=== PATIENT | female | born 1940 | race Caucasian/White ===

== ENCOUNTER → 2018-02-25 | Outpatient (CLI) | payer MEDICARE, OTHER ==
--- NOTE | 2018-02-26 10:03 | RAD ---
EXAM: Knee,Left Complete CLINICAL HISTORY: PAIN COMPARISON STUDY: None TECHNICAL: Standing AP and lateral images of the left knee FINDINGS: There is complete joint space loss of the lateral compartment with contact of the cortices and remodeling of the joint line. Large peripheral osteophytes are present. There are moderate to severe degenerative changes of the medial compartment with joint space loss and periarticular osteophytes. There are moderate to severe degenerative changes of the patellofemoral joint with large peripheral osteophytes. There is no fracture or dislocation. There is no evidence of a joint effusion. IMPRESSION: 1. Severe degenerative changes of the left lateral compartment. 2. Moderate to severe degenerative changes in the left medial compartment and patellofemoral joint. Electronically signed by: Michael Tompkins MD 02/26/2018 10:02 AM [facility]
--- NOTE | 2018-02-26 10:05 | RAD ---
EXAM: Knee,Right Complete CLINICAL HISTORY: PAIN IN RIGHT KNEE COMPARISON STUDY: None TECHNICAL: Standing AP, sunrise and lateral images of the right knee FINDINGS: There is severe joint space loss of the medial compartment with contact of the cortices and remodeling of the joint line. Large peripheral osteophytes are present. There are moderate degenerative changes of the lateral compartment with mild joint space loss and periarticular osteophytes. There are moderate degenerative changes of the patellofemoral joint with large peripheral osteophytes. There is no fracture or dislocation. There is no evidence of a joint effusion. IMPRESSION: 1. Severe degenerative changes of the right medial compartment. 2. Moderate degenerative changes in the right lateral compartment and patellofemoral joint Electronically signed by: Michael Tompkins MD 02/26/2018 10:04 AM [facility]
--- NOTE | 2018-02-26 10:06 | RAD ---
EXAM: Pelvis CLINICAL HISTORY: PAIN IN RIGHT HIP COMPARISON STUDY: None TECHNICAL: AP pelvis FINDINGS: Both hips have been replaced and the prosthesis are in alignment. The pelvic ring is intact. There are no degenerative changes of the sacroiliac joints. Postoperative changes of the lower lumbar spine are noted. Bilateral pelvic phleboliths are present. IMPRESSION: 1. No acute abnormality. 2. Intact bilateral hip prosthesis Electronically signed by: Michael Tompkins MD 02/26/2018 10:05 AM [facility]
== END ==
LOC: RAD 08:35
PROVIDERS: ATTEND Orthopaedic Surgery
DX: M25.561 Pain in right knee (principal); M25.551 Pain in right hip; M25.552 Pain in left hip; M17.0 Bilateral primary osteoarthritis of knee; Z96.643 Presence of artificial hip joint, bilateral

== ENCOUNTER → 2018-03-05 | Outpatient (CLI) | payer MEDICARE, OTHER ==
--- NOTE | 2018-03-05 14:59 | RAD ---
EXAM DESCRIPTION: Femur,Left CLINICAL HISTORY: 77 years Female, OSTEOARTHRITIS COMPARISON: None. FINDINGS: Total left hip arthroplasty is noted with anatomic alignment. No complicating fracture of the femur. Severe degenerative changes are seen at the left knee consistent with end-stage osteoarthrosis. Tibia and fibula appear intact. IMPRESSION: Total left hip arthroplasty. End-stage osteoarthrosis of the left knee. Electronically signed by: Willie Bright MD 03/05/2018 2:57 PM [facility]
--- NOTE | 2018-03-05 15:19 | MRI ---
EXAM DESCRIPTION: Knee,Left CLINICAL HISTORY: OSTEOARTHRITIS COMPARISON: None Available. TECHNIQUE: MRI of the left knee is performed according to our usual protocol with multiplanar multi sequence imaging. FINDINGS: Menisci Mild medial meniscal extrusion is seen measuring approximately 7 mm. Linear increased signal intensity is seen in the mid body with flattened appearance of the body of the meniscus. No extension to the articular surface to suggest a true tear. A normal lateral meniscus is not identified on the sagittal images. Small amount of meniscal tissue is seen anteriorly consistent with a flattened anterior horn. Amorphous meniscal tissue is seen posteriorly in the region of the posterior horn consistent with complex tear, possibly with displaced fragment overlapping. Findings might also suggest previous partial meniscectomy. Sagittal images show complex tear of the posterior horn of the lateral meniscus extending to the superior and inferior articular surfaces with possible involvement of the meniscal root attachment. Ligaments Thickened posterior cruciate ligament is seen with increased internal signal intensity suggesting chronic myxoid degenerative change. A normal anterior cruciate ligament is not identified consistent with chronic complete tear. Coronal images show medially bowing but intact medial collateral ligament. No disruption of the components of the lateral collateral ligamentous complex. Cartilage Axial images show multifocal grade 4 cartilage loss in the posterior patellar facet with grade 3-4 chondrosis of the anterior femoral trochlea. Prominent spurring of the patellar margins as well as the anterior femoral trochlear margins. Markedly narrowed patellofemoral joint space. Chronic complete cartilage loss of the lateral compartment is noted with subchondral cyst formation. High-grade thinning of the articular surface cartilage of the medial femoral condyle and medial tibial plateau is seen with broad areas of full-thickness cartilage denudement anteriorly. Patellofemoral extensor mechanism Sagittal images show intact quadriceps and patellar tendons. No patellar subluxation or fracture. Intact medial and lateral patellar retinacula. Osseous structures No fracture or marrow contusion. No bony destructive lesion. Subchondral degenerative cystic changes are present related to severe cartilage loss. Severe hypertrophic spurring is seen along the medial and lateral joint lines, and extending into the intercondylar notch. Large posterior patellar osteophytes are present superiorly and inferiorly. Typical proximal tibial osteophytes are present consistent with end-stage osteoarthrosis and there are prominent spurs along the posterior medial and lateral femoral condyles. Muscles Axial PD fat-sat images show mild edematous changes within the musculature of the proximal calf posteriorly. No intramuscular hematoma. Distal thigh musculature appears atrophic. Vessels Normal flow signal/flow void within the popliteal artery and vein on various sequences. Fluid Fluid is increased in the knee joint consistent with a small effusion. No posterior Ruiz's cyst. Small multiseptate cyst posterior to the lateral femoral condyle may be paraarticular ganglion 1.4 cm. IMPRESSION: Complex degenerative tear of the posterior horn lateral meniscus with thin body and anterior horn suggesting previous meniscectomy. Intact medial meniscus with medial meniscal extrusion. Tricompartmental high-grade articular surface hyaline cartilage loss as described. Chronic complete disruption of the anterior cruciate ligament. Overall findings consistent with end-stage osteoarthrosis of the left knee. Electronically signed by: Willie Bright MD 03/05/2018 3:18 PM [facility]
--- NOTE | 2018-03-06 08:04 | RAD ---
EXAM DESCRIPTION: Femur,Left CLINICAL HISTORY: 77 years Female, OSTEOARTHRITIS COMPARISON: None. FINDINGS: Total left hip arthroplasty is noted with anatomic alignment. No complicating fracture of the femur. Severe degenerative changes are seen at the left knee consistent with end-stage osteoarthrosis. Tibia and fibula appear intact. IMPRESSION: Total left hip arthroplasty. End-stage osteoarthrosis of the left knee. Electronically signed by: Willie Bright MD 03/05/2018 2:57 PM [facility]
--- NOTE | 2018-03-06 08:04 | RAD ---
EXAM DESCRIPTION: Femur,Left CLINICAL HISTORY: 77 years Female, OSTEOARTHRITIS COMPARISON: None. FINDINGS: Total left hip arthroplasty is noted with anatomic alignment. No complicating fracture of the femur. Severe degenerative changes are seen at the left knee consistent with end-stage osteoarthrosis. Tibia and fibula appear intact. IMPRESSION: Total left hip arthroplasty. End-stage osteoarthrosis of the left knee. Electronically signed by: Willie Bright MD 03/05/2018 2:57 PM [facility]
== END ==
LOC: MRI 11:00
PROVIDERS: ATTEND Orthopaedic Surgery
DX: M17.12 Unilateral primary osteoarthritis, left knee (principal); Z96.642 Presence of left artificial hip joint; S83.282A Other tear of lateral meniscus, current injury, left knee, initial encounter

== ENCOUNTER → 2018-03-18 | Outpatient (CLI) | payer MEDICARE, OTHER ==
--- NOTE | 2018-03-18 13:19 | RAD ---
EXAM DESCRIPTION: Chest,2 Views CLINICAL HISTORY: ESSENTIAL HYPERTENSION COMPARISON: None TECHNIQUE: PA/lateral FINDINGS: Pedicle screws and stabilization rods in the T-spine. Heart size is prominent without congestive failure. Density behind the heart may be hiatal hernia. Discoid atelectasis in left lung base. No pleural effusion or pneumothorax. Lungs are clear with no consolidating infiltrate. Lateral view shows intact sternum and T-spine. IMPRESSION: Large heart without congestive failure. Discoid atelectasis in left lung base with probable retrocardiac hiatal hernia. Electronically signed by: Willie Bright MD 03/18/2018 1:17 PM [facility]
== END ==
LOC: RESP 08:18
PROVIDERS: ATTEND Orthopaedic Surgery
DX: Z01.818 Encounter for other preprocedural examination (principal); I10 Essential (primary) hypertension

== ENCOUNTER → 2018-03-25 | Outpatient (CLI) | payer MEDICARE, OTHER | LOC: YCFC.O 12:21 | PROVIDERS: ATTEND Family Medicine | DX: N39.0 Urinary tract infection, site not specified (principal) ==

== ENCOUNTER → 2018-04-15 | Outpatient (CLI) | payer MEDICARE, OTHER | LOC: YCFC.O 11:04 | PROVIDERS: ATTEND Family Medicine | DX: N39.0 Urinary tract infection, site not specified (principal) ==

== ENCOUNTER 2018-05-07 05:49 | Inpatient (IN) | payer MEDICARE, OTHER ==
--- NOTE | 2018-04-29 10:10 | HP ---
CHIEF COMPLAINT: Left knee pain. HISTORY OF PRESENT ILLNESS: Ms. Mora is a 77-year-old female with a history of severe knee pain that has been getting progressively worse over several years. She has attempted conservative measures, however, has failed to gain relief. She says the left at this time is worse than the right. Because of her ongoing continued failure of conservative measures, she has requested operative intervention. After discussing the risks, benefits and alternatives to that, she has given informed consent. PAST SURGICAL HISTORY: 1. Hysterectomy. 2. Appendectomy. 3. Knee arthroscopy. 4. Lumbar and cervical fusion. 5. Bilateral hip replacements. MEDICATIONS: 1. Metoprolol. 2. Lisinopril. 3. Pravastatin. 4. Sertraline. 5. Sulindac. 6. Prilosec. 7. Duloxetine. 8. Zantac. 9. Gabapentin. 10. Tramadol. 11. Tylenol #3. 12. Multivitamin. ALLERGIES: NO KNOWN DRUG ALLERGIES. CODE STATUS: DNR. IMMUNIZATIONS: Up to date. FAMILY HISTORY: None pertinent to today's complaint. SOCIAL HISTORY: The patient does not drink, smoke or use any illicit drugs. REVIEW OF SYSTEMS: Negative except as indicated in the History of Present Illness. PHYSICAL EXAMINATION: VITAL SIGNS: Blood pressure 140/52. Pulse 76. Height 5'6". Weight 218 pounds. MENTAL STATUS: The patient is awake, alert, and is able to give a good history and participate in the physical. The patient is oriented to person, place and time. SKIN: Normal tone and turgor. HEENT: Normocephalic, atraumatic. Pupils equal, round and reactive. Mucosal membranes are moist. NECK: Normal range of motion. No thyromegaly, no lymphadenopathy. CHEST: Normal respiratory excursion. CARDIAC: Regular rate and rhythm. No murmurs, rubs or gallops. MUSCULOSKELETAL: The bilateral upper extremities show no significant pain with range of motion. She has intact sensation and strength is 5/5. Both extremities are warm and well perfused. The right lower extremity shows no significant pain with range of motion of the hip, but she does have pain with range of motion of the knee. She has intact sensation. She has no significant varus/valgus or anterior/posterior laxity. She has crepitus throughout her range of motion, but she has full extension and flexion to about 110 degrees. The left lower extremity shows no significant pain with range of motion of the hip. She is very tender to palpation along the knee. She has a large effusion on the left side and mild effusion on the right. She has full extension on the left without any varus/valgus or anterior/posterior laxity. Flexion is to about 110 degrees. IMAGING: X-rays show severe arthritis. ASSESSMENT: 1. Arthritis. PLAN: The plan at this point is for total knee arthroplasty. We have discussed the risks, benefits, and alternatives to that and the patient has given informed consent. #[id number] [facility]TDD
[2018-05-07] MEDS ORDERED: SODIUM CHL 0.9% 100ML MINI-BAG 100 ML IVPB ONE (05:53)
[2018-05-07] MEDS ORDERED: VANCOMYCIN HCL INJ 1,000 MG VIAL IVPB ONE ×3 (05:54→19:58)
[2018-05-07] MEDS ORDERED: ceFAZolin SODIUM 1 GM VIAL ONE ×2 (05:54→06:29)
[2018-05-07] MEDS ORDERED: LACTATED RINGERS 1,000 ML ONE (05:54)
[2018-05-07] MEDS ORDERED: TRANEXAMIC ACID 1,000 MG/10 ML VIAL ONE ×2 (05:54→05:58)
[2018-05-07] MEDS ORDERED: SODIUM CHLORIDE 0.9% 100ML 100 ML IVPB ONE (05:55)
[2018-05-07] MEDS ORDERED: SODIUM CHLORIDE 0.9% 250ML 250 ML ONE ×3 (05:55→19:57)
[2018-05-07] MEDS ORDERED: ACETAMINOPHEN IV 1000MG 100 ML ONE (06:31)
[2018-05-07] MEDS ORDERED: MIDAZOLAM INJ 5 MG/5 ML VIAL ONE (06:32)
[2018-05-07] MEDS ORDERED: MORPHINE SULF *EPIDURAL* 1 MG/ML VIAL ONE (06:32)
[2018-05-07] MEDS ORDERED: fentaNYL CITRATE INJ 50 MCG/ML AMP ONE (06:32)
[2018-05-07] MEDS ORDERED: HYDROmorphone HCL INJ 2 MG/ML VIAL ONE (07:16)
[2018-05-07] MEDS: VANCOMYCIN HCL INJ 1,000 MG VIAL IVPB ONE ×2 (08:02→10:14)
[2018-05-07] MEDS: ceFAZolin SODIUM 1 GM VIAL ONE ×2 (08:02→10:14)
[2018-05-07] MEDS: BUPIVACAINE LIPOSOME 13.3 MG/ML VIAL INJ ONE ×2 (08:02→10:13)
[2018-05-07] MEDS: BUPIVACAINE 0.5% 30 ML VIAL INJ ONE ×2 (08:02→10:13)
[2018-05-07] MEDS ORDERED: BUPIVACAINE LIPOSOME 13.3 MG/ML VIAL INJ ONE (08:20)
[2018-05-07] MEDS ORDERED: ELECTROLYTE-A 1,000 ML IVS ONE (10:09)
[2018-05-07] MEDS ORDERED: ALUMINUM & MAGNESIUM HYDROXIDE 30 ML UD PO PRN (10:27)
[2018-05-07] MEDS ORDERED: PROMETHAZINE HCL INJ 12.5 MG in SODIUM CHLORIDE 0.9% 50ML 50 ML IVPB PRN (10:27)
[2018-05-07] MEDS ORDERED: traMADol HCL 50 MG TAB PO PRN (10:27)
[2018-05-07] MEDS ORDERED: BISACODYL SUPPOSITORY 10 MG PR PRN (10:27)
[2018-05-07] MEDS ORDERED: NALOXONE HCL INJ 0.4 MG/ML VIAL IV PRN (10:27)
[2018-05-07] MEDS ORDERED: MAGNESIUM HYDROXIDE 30 ML UD PO PRN (10:27)
[2018-05-07] MEDS ORDERED: BENZOCAINE-MENTH LOZ (CEPACOL) 1 EA LOZ MT PRN (10:27)
[2018-05-07] MEDS ORDERED: ZOLPIDEM TARTRATE 5 MG TAB PO PRN (10:27)
[2018-05-07] MEDS ORDERED: ACETAMINOPHEN 325 MG TAB PO PRN (10:27)
[2018-05-07] MEDS ORDERED: TRANEXAMIC ACID INJ 1,000 MG in SODIUM CHLORIDE 0.9% 100ML 100 ML IVPB ONE (10:27)
[2018-05-07] MEDS ORDERED: MORPHINE SULFATE INJ 10 MG/ML VIAL IM PRN (10:27)
[2018-05-07] MEDS ORDERED: ONDANSETRON INJ 4 MG/2 ML VIAL IV PRN (10:27)
[2018-05-07] MEDS ORDERED: MORPHINE SULFATE INJ 10 MG/ML VIAL IV PRN (10:27)
[2018-05-07] MEDS ORDERED: SODIUM CHLORIDE 0.9% (FLUSH) 10 ML SYG IV PRN (10:27)
[2018-05-07] MEDS ORDERED: TEMAZEPAM 15 MG CAP PO PRN (10:27)
[2018-05-07] MEDS ORDERED: PROMETHAZINE HCL INJ 25 MG in SODIUM CHLORIDE 0.9% 50ML 50 ML IVPB PRN (10:27)
[2018-05-07] MEDS ORDERED: ACETAMINOPHEN 500 MG TAB PO PRN (10:27)
[2018-05-07] MEDS ORDERED: MORPHINE PCA 1 MG/ML 100 ML BAG IVPB SCH (10:30)
[2018-05-07] MEDS: DEX 5% W/NACL 0.45% 1000ML 1,000 ML IVS PRN ×2 (11:07→15:52)
[2018-05-07] MEDS ORDERED: LIDOCAINE 1% 10 ML VIAL INJ ONE (13:00)
[2018-05-07] MEDS ORDERED: METOPROLOL TARTRATE INJ 5 MG/5 ML VIAL IV ONE (13:00)
[2018-05-07] MEDS ORDERED: DEXAMETHASONE INJ 10 MG/ML VIAL IV ONE (13:00)
[2018-05-07] MEDS ORDERED: PROPOFOL 200 MG/20 ML VIAL IV ONE (13:00)
[2018-05-07] MEDS ORDERED: ePHEDrine SULF 50 MG/ML IV ONE (13:00)
[2018-05-07] MEDS ORDERED: METOCLOPRAMIDE HCL INJ 10 MG/2 ML VIAL IV ONE (13:00)
[2018-05-07] MEDS ORDERED: raNITIdine HCL INJ 25 MG/ML VIAL IV ONE (13:00)
--- NOTE | 2018-05-07 15:27 | RAD ---
EXAM DESCRIPTION: Pelvis CLINICAL HISTORY: 77 years Female, postop COMPARISON: None. FINDINGS: AP pelvis shows bilateral hip prostheses in excellent position. No radiographic findings of loosening or complicating process. No fracture. IMPRESSION: Normal Electronically signed by: Kvng Palacios MD 05/07/2018 3:26 PM [facility]
[2018-05-07] MEDS: IV SET AND CAP CHANGE INJ INJ SCH (15:33)
--- NOTE | 2018-05-07 15:36 | RAD ---
EXAM DESCRIPTION: Knee,Left 2 or More Views CLINICAL HISTORY: 77 years Female, TKA COMPARISON: February 25, 2018 FINDINGS: Two views of the left knee show postoperative changes related to recent left knee arthroplasty. No hardware or other surgical complication is seen. No periprosthetic fracture. A small amount gas in the left knee joint is likely related to recent surgery. IMPRESSION: Uncomplicated postoperative changes in the left knee. Electronically signed by: Gucci House MD 05/07/2018 3:34 PM [facility]
[2018-05-07] MEDS ORDERED: ceFAZolin SODIUM 2 GRAMS PREMI 50 ML IVPB ONE ×2 (15:38→19:58)
[2018-05-07] MEDS: ceFAZolin SODIUM 2 GRAMS PREMI 2 GM in PREMIX BAG 1 BAG IVPB SCH ×2 (15:54→23:50)
[2018-05-07] MEDS: CELECOXIB 100 MG CAP PO SCH (16:56)
[2018-05-07] MEDS: GABAPENTIN 300 MG CAP PO SCH ×2 (16:56→21:02)
[2018-05-07] MEDS: VANCOMYCIN HCL INJ 1,000 MG in SODIUM CHLORIDE 0.9% 250ML 250 ML IVPB SCH (17:57)
--- NOTE | 2018-05-07 19:04 | PN ---
DATE: 05/07/18 POSTOPERATIVE CHECK SUBJECTIVE: She has done pretty well and pain is well controlled currently. OBJECTIVE: She is afebrile. Vital signs are stable. Dressing is clean, dry and intact. ASSESSMENT: 1. Status post total knee arthroplasty. PLAN: The plan at this point is for her to increase on her CPM. #[id number] [facility]TDD
[2018-05-07] MEDS ORDERED: OMEPRAZOLE CAP 20 MG CAP ONE (19:57)
[2018-05-07] MEDS ORDERED: ENOXAPARIN SODIUM 30 MG/0.3 ML SYG SUBCU ONE (19:58)
[2018-05-07] MEDS: CYCLOBENZAPRINE HCL 10 MG TAB PO PRN (21:03)
[2018-05-07] MEDS: PRAVASTATIN SODIUM 20 MG TAB PO SCH (21:03)
[2018-05-07] MEDS: DOCUSATE CALCIUM 240 MG CAP PO SCH (21:03)
--- NOTE | 2018-05-07 21:27 | CONS ---
SUPERVISING PHYSICIAN: Last Nj M.D. REASON FOR CONSULTATION: Left total knee arthroplasty. HISTORY OF PRESENT ILLNESS: This is a 77 year-old female patient that has had severe knee pain that has progressively worsened over several years. She has attempted conservative measures but has failed to gain relief. She has osteoarthritis of both knees but feels like the left one is worse than the right, so she requested Dr. Amari Hoffman, orthopedic surgeon, for operative intervention for the left knee. She had no problems intraoperatively and I am seeing the patient in consultation postoperatively. PAST MEDICAL HISTORY: 1. Hypertension. 2. Hyperlipidemia. 3. Depression and anxiety. 4. Osteoarthritis. 5. Gastroesophageal reflux disease. 6. Peripheral neuropathy. PAST SURGICAL HISTORY: OUTPATIENT MEDICATIONS: 1. Acetaminophen with codeine. 2. [place]-3 fatty acids. 3. vitamins. 4. Tramadol. 5. Gabapentin. 6. Lisinopril. 7. Metoprolol. 8. Omeprazole. 9. Pravastatin. 10. Ranitidine. 11. Sertraline. ALLERGIES: NO KNOWN DRUG ALLERGIES. FAMILY HISTORY: Noncontributory. SOCIAL HISTORY: She lives in [place]. She is . She sees Dr. Elma Durand as her primary care physician. She does not drink, smoke or use any illicit drugs. REVIEW OF SYSTEMS: Negative except as indicated in History of Present Illness. PHYSICAL EXAMINATION: VITAL SIGNS: Temperature 97.1, heart rate 99, blood pressure 137/79, respiratory rate 20, O2 sat 100% on 2 liters nasal cannula. GENERAL: This is a 77 year-old female patient lying in her hospital bed. She is in no acute distress. HEENT: Normocephalic and atraumatic. Pupils are equal and reactive. Oropharynx is clear. NECK: Supple without mass. CHEST: Essentially clear to auscultation bilaterally. There is equal rise and fall of the chest with inspiration and expiration. HEART: Regular rate and rhythm. GASTROINTESTINAL: Abdomen is soft, nondistended, non-tender. Bowel sounds are positive. EXTREMITIES: Bilateral pedal pulses are palpable at +2. Left knee has an Jorge bandage. Her dressing is dry and intact. NEUROLOGIC: She is awake, alert and oriented times three. Cranial nerves II- XII are grossly intact. IMPRESSION: 1. Osteoarthritis of the left knee status post left total knee arthroplasty done per Dr. Amari Hoffman, orthopedic surgeon. Postoperative day #0. 2. Hypertension. 3. Gastroesophageal reflux disease. 4. Depression and anxiety. PLAN: We will continue present supportive care. Orthopedic issues will be per Dr. Amari Hoffman, orthopedic surgeon. She will start her physical therapy tomorrow for strengthening and conditioning. Will encourage good pulmonary hygiene. I have restarted her home medications. We will continue to monitor closely and follow as needed. #[id number] [facility]
[2018-05-07] MEDS: ENOXAPARIN SODIUM 30 MG/0.3 ML SYG SUBCU SCH (22:33)
[2018-05-08] MEDS: VANCOMYCIN HCL INJ 1,000 MG in SODIUM CHLORIDE 0.9% 250ML 250 ML IVPB SCH (05:40)
[2018-05-08] MEDS: GABAPENTIN 300 MG CAP PO SCH ×5 (06:38→20:30)
[2018-05-08] MEDS: OMEPRAZOLE CAP 20 MG CAP PO SCH (06:38)
[2018-05-08] MEDS ORDERED: ceFAZolin SODIUM 2 GRAMS PREMI 50 ML IVPB ONE (07:28)
[2018-05-08] MEDS: METOPROLOL TARTRATE 25 MG TAB PO SCH (07:56)
[2018-05-08] MEDS: MAGNESIUM OXIDE 400 MG TAB PO SCH (07:57)
[2018-05-08] MEDS: CELECOXIB 100 MG CAP PO SCH ×2 (07:57→17:15)
[2018-05-08] MEDS: ceFAZolin SODIUM 2 GRAMS PREMI 2 GM in PREMIX BAG 1 BAG IVPB SCH (07:59)
[2018-05-08] MEDS: SERTRALINE HCL 50 MG TAB PO SCH (07:59)
[2018-05-08] MEDS: LISINOPRIL 10 MG TAB PO SCH (08:02)
--- NOTE | 2018-05-08 09:06 | OP ---
DATE OF PROCEDURE: 05/07/18 PREOPERATIVE DIAGNOSIS: 1. Arthritis of the knee. POSTOPERATIVE DIAGNOSIS: 1. Arthritis of the knee. PROCEDURE: 1. Total knee arthroplasty. SURGEON: Amari Hoffman MD. POWER PLANT SUPERINTENDENT: Jake Cabrera CST, SA-C. ANESTHESIA: General anesthesia. COMPLICATIONS: None. FINDINGS: Severe arthritis of the knee. INDICATION: Ms. Mora has a long history of severe and worsening knee pain. X-rays demonstrate severe knee osteoarthritis. He has a history of total hip arthroplasty done on the ipsilateral side. Because of that, we did have a system by [employer] to bring in custom cutting blocks. After discussing the risks, benefits and alternatives to operative therapy with Ms. Mora, she has given informed consent for that. PROCEDURE: The patient was brought to the Operating Room and placed in supine position. General anesthesia was induced and the patient's leg was sterilely prepped and draped. Following prepping and draping, a midline incision with standard medial parapatellar approach was used. Multiple large bony osteophytes were removed from the patellar region to facilitate exposure. The distal femur was exposed and the cutting block from the [employer] system was applied distally. The distal femoral cut was made. Following the distal femoral cut, a 5-in-1 cutting block was used to complete cuts on the distal femur. Following the distal femoral cuts, a box cut was made to accommodate a posterior stabilized prosthesis. The ACL was transected and the tibia was subluxed. The [employer] block was applied to the tibial plateau and the cut was made. A trial baseplate as well as trial femoral component and polyethylene were inserted. The knee was taken through a range of motion and there was excellent patella tracking. Following that, the components were removed. The bony surfaces were thoroughly irrigated and dried. Final components were cemented in place, the excess cement was removed and the remaining cement was allowed to cure. The knee was then very thoroughly irrigated. Following irrigation, the wound was closed in layers using PDS and Monocryl. Sterile dressings were placed. The patient was awoken from anesthesia and taken to Recovery. POSTOPERATIVE PLAN: The patient will be weight-bearing as tolerated on postoperative day 1. We will increase her CPM as tolerated. COMPONENTS: [employer] II knee, size 5 femur, size 5 tibia, 10 mm insert. [facility][id number] [facility]
--- NOTE | 2018-05-08 09:08 | PN ---
DATE: 05/08/18 SUBJECTIVE: She is doing well and has no complaints. OBJECTIVE: Afebrile. Vital signs stable. Dressing is clean, dry and intact. ASSESSMENT: Status post total knee arthroplasty. PLAN: The plan at this point is to begin weightbearing as tolerated. [facility][id number] [facility]
[2018-05-08] MEDS: CYCLOBENZAPRINE HCL 10 MG TAB PO PRN (12:34)
[2018-05-08] MEDS: ENOXAPARIN SODIUM 30 MG/0.3 ML SYG SUBCU SCH ×2 (12:49→22:55)
[2018-05-08] MEDS ORDERED: SODIUM CHLORIDE 0.9% 1000ML 1,000 ML IVS ONE (14:19)
[2018-05-08] MEDS ORDERED: SODIUM CHLORIDE 0.45% 1000ML 1,000 ML IVS ONE (16:46)
[2018-05-08] MEDS: DEX 5% W/NACL 0.45% 1000ML 1,000 ML IVS PRN (19:41)
[2018-05-08] MEDS: PRAVASTATIN SODIUM 20 MG TAB PO SCH (20:30)
[2018-05-08] MEDS: DOCUSATE CALCIUM 240 MG CAP PO SCH (20:30)
[2018-05-08] MEDS: traMADol HCL 50 MG TAB PO SCH (20:30)
[2018-05-09] MEDS: OMEPRAZOLE CAP 20 MG CAP PO SCH (06:18)
[2018-05-09] MEDS: CELECOXIB 100 MG CAP PO SCH ×2 (07:52→17:29)
--- NOTE | 2018-05-09 07:56 | PN ---
SUPERVISING PHYSICIAN: Last Nj MD DATE: 05/08/18 SUBJECTIVE: The patient is lying in her hospital bed. She has no complaints at this time. Earlier in the shift, the nurses reported that the patient became hypotensive after her physical therapy. Her vital signs had her systolic blood pressure dropping to upper 90s to low 100s. She also became quite weak and had to be assisted back to bed. She was given half a liter of fluids and her blood pressure improved to 105/64. Since that time, she has had complaints of some weakness, but has had minimal pain, no chest pain, no shortness of breath, no nausea, no vomiting. OBJECTIVE: VITAL SIGNS: Temperature 98.1. Heart rate 101. Blood pressure 105/64. Respiratory rate 20. O2 saturation 96% on 2 liters nasal cannula. RESPIRATORY: Essentially clear to auscultation bilaterally. CARDIAC: Regular rate and rhythm. GASTROINTESTINAL: Abdomen is soft, nondistended, nontender. Bowel sounds are positive. EXTREMITIES: Bilateral pedal pulses are palpable at +2. Dressing to her left knee is dry and intact. NEUROLOGIC: Awake, alert and oriented times three. LABORATORY: Hemoglobin 11, hematocrit 35.5. All other labs and films have been reviewed via the EMR. ASSESSMENT: 1. Osteoarthritis of the left knee status post left total knee arthroplasty performed by Dr. Amari Hoffman, orthopedic surgeon. Postoperative day #1. 2. Hypertension. 3. Gastroesophageal reflux disease. 4. Depression and anxiety. PLAN: We will continue present supportive care. Orthopedic issues will be per Dr. Amari Hoffman, orthopedic surgeon. Physical therapy will continue tomorrow for strengthening and conditioning. I will give her some fluids overnight and recheck her labs in the morning. At that time, we will reevaluate her fluid status. Otherwise, we will continue to monitor the patient closely and follow as needed. #[id number] [facility]TDD
[2018-05-09] MEDS: LISINOPRIL 10 MG TAB PO SCH (08:55)
[2018-05-09] MEDS: SERTRALINE HCL 50 MG TAB PO SCH (08:55)
[2018-05-09] MEDS: METOPROLOL TARTRATE 25 MG TAB PO SCH (08:55)
[2018-05-09] MEDS: GABAPENTIN 300 MG CAP PO SCH ×3 (08:55→20:09)
[2018-05-09] MEDS: MAGNESIUM OXIDE 400 MG TAB PO SCH (08:56)
[2018-05-09] MEDS: SODIUM CHLORIDE 0.9% (FLUSH) 10 ML SYG IV SCH ×2 (08:56→20:12)
[2018-05-09] MEDS: ENOXAPARIN SODIUM 30 MG/0.3 ML SYG SUBCU SCH ×2 (10:13→22:26)
[2018-05-09] MEDS: DOCUSATE CALCIUM 240 MG CAP PO SCH (20:09)
[2018-05-09] MEDS: PRAVASTATIN SODIUM 20 MG TAB PO SCH (20:09)
[2018-05-09] MEDS: traMADol HCL 50 MG TAB PO SCH (20:11)
[2018-05-10] MEDS: HYDROcodone 5MG/APAP 325MG 1 EA TAB PO PRN ×2 (01:58→18:46)
[2018-05-10] MEDS: OMEPRAZOLE CAP 20 MG CAP PO SCH (06:13)
[2018-05-10] MEDS: CELECOXIB 100 MG CAP PO SCH ×2 (07:55→17:11)
[2018-05-10] MEDS: METOPROLOL TARTRATE 25 MG TAB PO SCH (07:56)
[2018-05-10] MEDS: GABAPENTIN 300 MG CAP PO SCH ×3 (07:57→21:31)
[2018-05-10] MEDS: LISINOPRIL 10 MG TAB PO SCH (07:57)
[2018-05-10] MEDS: SODIUM CHLORIDE 0.9% (FLUSH) 10 ML SYG IV SCH ×2 (07:58→21:33)
[2018-05-10] MEDS: SERTRALINE HCL 50 MG TAB PO SCH (07:59)
[2018-05-10] MEDS: MAGNESIUM OXIDE 400 MG TAB PO SCH (08:04)
--- NOTE | 2018-05-10 10:38 | PN ---
DATE: 05/09/18 SUPERVISING PHYSICIAN: Last Nj M.D. SUBJECTIVE: The patient states she feels much better today. She has had no weakness other than she did have to sit down one time during her physical therapy, but she feels much better today. She denies any chest pain, palpitations, nausea, vomiting or diarrhea. OBJECTIVE: VITAL SIGNS: Temperature 98.6, heart rate 102, blood pressure 130/75, respiratory rate 16, O2 sat 93% on 2 liters nasal cannula. RESPIRATORY: Essentially clear to auscultation and bilaterally. CARDIAC: Regular rate and rhythm. GASTROINTESTINAL: Abdomen is soft, nondistended, non-tender. Bowel sounds are positive. EXTREMITIES: Bilateral pedal pulses are palpable at +2. The dressing on her left knee is dry and intact. NEUROLOGIC: She is awake, alert and oriented times three. LABORATORY: WBCs were 11.5 with hemoglobin 9.5, hematocrit 30.3. Chemistries were unremarkable except calcium is slightly low 7.9. All other labs and films have been reviewed via the EMR. ASSESSMENT: 1. Osteoarthritis of the left knee status post left total knee arthroplasty performed by Dr. Amari Hoffman, orthopedic surgeon. Postoperative day #2. 2. Hypertension. 3. Gastroesophageal reflux disease. 4. Depression and anxiety. PLAN: We will continue present supportive care. Orthopedic issues will be per Dr. Amari Hoffman, orthopedic surgeon. She will continue with physical therapy for strengthening and conditioning. Most likely she will be in the hospital until Saturday due to her weakness. I will repeat her H&H in the morning as it has dropped slightly and she has had some hypotensive episodes as well as some weakness. Otherwise I have encouraged good pulmonary hygiene. Will continue to monitor closely and follow as needed. #[id number] [facility]TDD
[2018-05-10] MEDS: ENOXAPARIN SODIUM 30 MG/0.3 ML SYG SUBCU SCH ×2 (12:00→22:33)
[2018-05-10] MEDS: IV SET AND CAP CHANGE INJ INJ SCH (13:13)
[2018-05-10] MEDS ORDERED: MAGNESIUM HYDROXIDE 30 ML UD PO ONE (21:00)
[2018-05-10] MEDS ORDERED: BISACODYL SUPPOSITORY 10 MG PR ONE (21:00)
[2018-05-10] MEDS: traMADol HCL 50 MG TAB PO SCH (21:31)
[2018-05-10] MEDS: DOCUSATE CALCIUM 240 MG CAP PO SCH (21:31)
[2018-05-10] MEDS: PRAVASTATIN SODIUM 20 MG TAB PO SCH (21:31)
[2018-05-11] MEDS: HYDROcodone 5MG/APAP 325MG 1 EA TAB PO PRN ×2 (02:04→16:28)
[2018-05-11] MEDS: OMEPRAZOLE CAP 20 MG CAP PO SCH (06:10)
[2018-05-11] MEDS: CELECOXIB 100 MG CAP PO SCH ×2 (08:48→16:29)
[2018-05-11] MEDS: MAGNESIUM OXIDE 400 MG TAB PO SCH (08:49)
[2018-05-11] MEDS: GABAPENTIN 300 MG CAP PO SCH ×3 (08:49→20:40)
[2018-05-11] MEDS: METOPROLOL TARTRATE 25 MG TAB PO SCH (08:49)
[2018-05-11] MEDS: SERTRALINE HCL 50 MG TAB PO SCH (08:49)
[2018-05-11] MEDS: LISINOPRIL 10 MG TAB PO SCH (08:49)
[2018-05-11] MEDS: SODIUM CHLORIDE 0.9% (FLUSH) 10 ML SYG IV SCH ×2 (08:50→20:41)
--- NOTE | 2018-05-11 09:51 | PN ---
SUPERVISING PHYSICIAN: Jung Reyes MD DATE: 05/10/18 SUBJECTIVE: The patient continues to progress well in her physical therapy. She has good pain control and has had no further complaints. OBJECTIVE: VITAL SIGNS: She remains afebrile. Temperature 98.1, pulse 84, blood pressure 129/65, respirations 16, saturation 96% on nasal cannula and 92% on room air. Weight 97.7 kg. She has had one bowel movement. CHEST: Clear to auscultation. HEART: Regular rate and rhythm. ABDOMEN: Soft, non-tender, positive bowel sounds. EXTREMITIES: Dressing remains in place over the left knee which is clean and dry. Pedal pulses are 2+ bilaterally. NEURO: She is alert and oriented x 3. LABORATORY: Her hemoglobin and hematocrit are showing to be fairly stable at 9.1 and 28.5 today. Chemistries showed to be stable in regards to electrolytes. Renal function shows a creatinine of 0.54 ASSESSMENT: 1. Osteoarthritis of the left knee status post left total knee arthroplasty performed by Dr. Amari Hoffman, postoperative day #3. 2. Hypertension, stable. 3. Gastroesophageal reflux disease. 4. Depression and anxiety. PLAN: Will continue with current plan and follow the patient as she continues with physical therapy, strengthening and conditioning. Plan to probably transition her to outpatient management on Saturday after talking with physical therapy and possibly going to Swing Bed. Will continue to watch her blood pressures closely and continue with encouraging pulmonary hygiene. Until she can transition to outpatient management or Swing bed, we will continue to monitor and treat as needed. #[id number] MTDD
[2018-05-11] MEDS: ENOXAPARIN SODIUM 30 MG/0.3 ML SYG SUBCU SCH ×2 (12:51→22:28)
--- NOTE | 2018-05-11 15:05 | PN ---
DATE: 05/10/18 SUBJECTIVE: Ms. Mora is doing really well. She has great pain control OBJECTIVE: She is afebrile. Vital signs are stable. Wound is clean. There are no signs or symptoms of infection. ASSESSMENT: 1. Status post total knee arthroplasty. PLAN: The plan at this point is for her to continue on with weightbearing as tolerated. [facility][id number] [facility]
--- NOTE | 2018-05-11 15:07 | PN ---
DATE: 05/11/18 SUBJECTIVE: She continues to improve. Continues to have excellent pain control. OBJECTIVE: She is afebrile. Vital signs are stable. Wound is clean. There are no signs or symptoms of infection. ASSESSMENT: 1. Status post total knee arthroplasty. PLAN: The plan is to continue on with her current regimen and will consider either Swing Bed or discharge early this week. #[id number] [facility]
[2018-05-11] MEDS: traMADol HCL 50 MG TAB PO SCH (20:39)
[2018-05-11] MEDS: DOCUSATE CALCIUM 240 MG CAP PO SCH (20:40)
[2018-05-11] MEDS: PRAVASTATIN SODIUM 20 MG TAB PO SCH (20:41)
--- NOTE | 2018-05-11 22:35 | PN ---
DATE: 05/11/18 SUPERVISING PHYSICIAN: Jung Reyes M.D. SUBJECTIVE: The patient is doing well. She is able to have good pain control and she has been participating with her physical therapy. OBJECTIVE: VITAL SIGNS: Temperature 98.1, pulse 88, blood pressure 147/80, respirations 16, satting 92% on 2 liters nasal cannula. I's and O's are showing a good balance. She has had 1 bowel movement. Weight is 95.7 kg. CHEST: Lungs are clear to auscultation. HEART: Regular rate and rhythm. ABDOMEN: Soft, non- tender. Positive bowel sounds. EXTREMITIES: Left knee has an island dressing in place which is clean and dry. Pulses distally are 2+ bilaterally. Capillary refill is brisk. NEUROLOGIC: She is alert and oriented times three. No additional laboratory studies today. No additional radiographic studies. ASSESSMENT: 1. Osteoarthritis of the left knee status post left total knee arthroplasty, postoperative day #3, performed by Dr. Amari Hoffman. 2. Hypertension, stable. 3. Gastroesophageal reflux disease, stable. 4. Depression and anxiety. PLAN: Will continue to follow the patient as she progresses through her physical therapy. Anticipation of hopefully transitioning to outpatient management either Swing Bed tomorrow or going home. Until then will continue to encourage good pulmonary hygiene. Will await further assessment by Physical Therapy, and continue to monitor as needed. #[id number] [facility]
[2018-05-12] MEDS: CELECOXIB 100 MG CAP PO SCH (06:44)
[2018-05-12] MEDS: OMEPRAZOLE CAP 20 MG CAP PO SCH (06:45)
[2018-05-12] MEDS: GABAPENTIN 300 MG CAP PO SCH ×2 (09:11→11:39)
[2018-05-12] MEDS: MAGNESIUM OXIDE 400 MG TAB PO SCH (09:12)
[2018-05-12] MEDS: LISINOPRIL 10 MG TAB PO SCH (09:12)
[2018-05-12] MEDS: SERTRALINE HCL 50 MG TAB PO SCH (09:12)
[2018-05-12] MEDS: METOPROLOL TARTRATE 25 MG TAB PO SCH (09:13)
[2018-05-12] MEDS: SODIUM CHLORIDE 0.9% (FLUSH) 10 ML SYG IV SCH (09:14)
[2018-05-12] MEDS: ENOXAPARIN SODIUM 30 MG/0.3 ML SYG SUBCU SCH (11:30)
[2018-05-12 15:58] VITALS: BP 130/73; TEMP 99.4
[2018-05-12 18:41] VITALS: O2SAT 94
--- NOTE | 2018-05-22 13:47 | DS ---
SUPERVISING PHYSICIAN: Arjun Patel MD ADMISSION DIAGNOSIS: 1. Osteoarthritis of the left knee status post left total knee arthroplasty done per Dr. Amari Hoffman, orthopedic surgeon. Postoperative day #0. 2. Hypertension. 3. Gastroesophageal reflux disease. 4. Depression and anxiety. DISCHARGE DIAGNOSIS: 1. Osteoarthritis of the left knee status post left total knee arthroplasty, postoperative day #4, performed by Dr. Amari Hoffman. 2. Hypertension, stable. 3. Gastroesophageal reflux disease, stable. 4. Depression and anxiety. REASON FOR HOSPITALIZATION: This is a 77 year-old female patient that has had severe knee pain that has progressively worsened over several years. She has attempted conservative measures but has failed to gain relief. She has osteoarthritis of both knees but feels like the left one is worse than the right, so she requested Dr. Amari Hoffman, orthopedic surgeon, for operative intervention for the left knee. She had no intraoperative complications and was seen in consultation postoperatively in stable condition. LABORATORY: CBC on admission showed white count 8,100, hemoglobin 13.1, hematocrit 41.3, platelet count 344,000. Differential was without a left shift. Discharge white count was up to 11,500, hemoglobin stabilizing at 9.1, hematocrit 28.8. Chemistries showed normal electrolytes on admission, glucose 110, calcium 9.1, magnesium 2.2. At discharge, electrolytes were within normal limits with BUN 15, creatinine 0.54. Urine drug screen was negative for all substances tested. RADIOLOGY: No additional radiographic studies to report. Please see all postoperative notes for those details. PROCEDURE: Left total knee arthroplasty performed by Dr. Amari Hoffman. Please see his operative report for details. CONSULTATION: Hospitalist consultation. Please see consultation note by Nessa Ventura for details. HOSPITAL COURSE: Mr. Mora was admitted on 05/07/18 after elective left total knee arthroplasty. She was managed per protocol for physical therapy and orthopedic services. She progressed well through her physical therapy. On date of discharge, the patient was doing well, had good pain control and was able to participate in physical therapy. Therefore, it was felt she could be discharged to continue with outpatient management. PLAN: Ms. Mora was discharged as noted above with plans to continue with outpatient management per physical therapy as directed with arrangements made prior to discharge. She was to followup with Dr. Hoffman as scheduled and was to resume home medications as prior to hospitalization. She was to take new medications as directed. She was given warnings to return to the hospital or contact Dr. Hoffman for concerning symptoms. Medications at discharge included Xarelto 10 mg daily, #6. All other medications prior to admission were continued. DISPOSITION: The patient was discharged home. CONDITION AT DISCHARGE: Stable and improving. #[id number] [facility]
== END 2018-05-12 16:00 | disposition home health service (06) | DRG 470 ==
LOC: AMB 05:49 → MS 13:05
PROVIDERS: ADMIT Orthopaedic Surgery; ATTEND Nurse Practitioner Family
PROC: 3E0T3BZ Introduction of Anesthetic Agent into Peripheral Nerves and Plexi, Percutaneous Approach (ICD-10-PCS; 2018-05-07)
PROC: 0SRD0J9 Replacement of Left Knee Joint with Synthetic Substitute, Cemented, Open Approach (ICD-10-PCS; principal; 2018-05-07 07:21)
DX: M17.12 Unilateral primary osteoarthritis, left knee (principal); I95.9 Hypotension, unspecified; R53.1 Weakness; I10 Essential (primary) hypertension; K21.9 Gastro-esophageal reflux disease without esophagitis; E78.5 Hyperlipidemia, unspecified; F41.9 Anxiety disorder, unspecified; F32.9 Major depressive disorder, single episode, unspecified; G62.9 Polyneuropathy, unspecified; E66.9 Obesity, unspecified; Z66 Do not resuscitate; Z98.1 Arthrodesis status; Z79.891 Long term (current) use of opiate analgesic; Z79.899 Other long term (current) drug therapy

== ENCOUNTER → 2018-10-07 | Outpatient (CLI) | payer MEDICARE, OTHER ==
--- NOTE | 2018-10-07 14:30 | RAD ---
EXAM DESCRIPTION: Chest,2 Views CLINICAL HISTORY: PRE-SURGERY EVALUATION COMPARISON: Previous study March 18, 2018 TECHNIQUE: PA/lateral FINDINGS: Orthopedic hardware in the T-spine. Heart is large. Hiatal hernia behind the heart is prominent. Patchy atelectasis left lung base is stable to slightly improved compared to previous study. Normal pulmonary vascularity. No pleural effusion or pneumothorax. Lateral view shows intact sternum and T-spine. IMPRESSION: Large heart without congestive failure. Electronically signed by: Willie Bright MD 10/07/2018 2:28 PM CDT
== END ==
LOC: LAB.O 12:22
PROVIDERS: ATTEND Family Medicine
DX: Z01.818 Encounter for other preprocedural examination (principal)

== ENCOUNTER → 2018-11-13 | Outpatient (CLI) | payer MEDICARE, OTHER ==
--- NOTE | 2018-11-13 15:57 | MRI ---
Study: MRI of the Right Knee. Indication: ARTHRITIS Technique: Multiplanar, multi sequence MRI of the right knee was obtained without intravenous contrast. Comparison: Radiographs, same day. Findings: Moderate mucoid degeneration ACL with mild changes PCL. Both the MCL and FCL are slightly thickened and lax with mild increased internal PD signal. In addition, there is mild thickening of the distal IT band. These findings can be seen in the setting of the osteoarthritic knee. No acute tear defect of the medial or lateral collateral structures. Maceration and severe attenuation throughout the medial meniscus, most pronounced at the posterior horn and body. Body extruded by 4 mm. Severe medial compartment osteoarthritis with complete grade 4 chondral loss and cortical remodeling. Scattered degenerative signal throughout the lateral meniscus with free edge fraying. Mild discoid configuration. Slight lateral translation two-view relation to the femur with irregular grade 4 chondrosis, cortical remodeling, and subchondral marrow change at the central to medial weightbearing aspects of the lateral compartment. Tendinosis quadriceps insertion with mild interstitial fissuring. Patella normally located. Patellar tendon intact. Extensive grade 4 chondral loss throughout the majority of the patellofemoral compartment with patchy cortical remodeling and subchondral marrow change. Moderate size knee effusion. Moderate to large tricompartmental osteophytes. Moderate thickening medial patellar plica. Impression: Maceration/attenuation throughout the medial meniscus. Mild discoid degeneration lateral meniscus with scattered free edge fraying throughout. Tricompartmental osteoarthritis, most pronounced at the medial compartment where there are severe changes. Moderate size knee effusion. Moderate mucoid degeneration ACL with mild changes PCL. Additional findings as above. Electronically signed by: Ricki Liu MD 11/13/2018 3:53 PM CDT
--- NOTE | 2018-11-13 18:48 | RAD ---
EXAM DESCRIPTION: Femur,Right (accession [id number]), Tibia/Fibula,Right (accession [id number]): CR/DR/XR CLINICAL HISTORY: 77 years Female ARTHRITIS. Preoperative planning for right total knee arthroplasty. COMPARISON: Radiographs of the left femur and tibia fibula on 03/05/2018. TECHNIQUE: Standard preoperative technique in a patient with total hip arthroplasty for placement of Ventura [employer] Nephew right total knee arthroplasty. 2 views AP proximal and distal femur and 2 views AP knee and lower leg. Reference markers on the skin: medial lateral mid thigh, medial and lateral distal thigh, and medial and lateral mid lower leg. IMPRESSION: Skin reference markers are visualized. Advanced osteoarthritis with [id number] of the medial compartment of the right knee. Minimal medial shift of the femur on the tibia. Marginal spurs lateral compartment. Right total hip arthroplasty in customary position. No bony complications around the femoral stem. Loss of bone density in the distal right fibula and ankle mortise. Small bone density abutting the inferior tip of the medial malleolus. Electronically signed by: Jake Mathis MD 11/13/2018 6:47 PM CDT
--- NOTE | 2018-11-13 18:48 | RAD ---
EXAM DESCRIPTION: Femur,Right (accession [id number]), Tibia/Fibula,Right (accession [id number]): CR/DR/XR CLINICAL HISTORY: 77 years Female ARTHRITIS. Preoperative planning for right total knee arthroplasty. COMPARISON: Radiographs of the left femur and tibia fibula on 03/05/2018. TECHNIQUE: Standard preoperative technique in a patient with total hip arthroplasty for placement of Ventura & Nephew right total knee arthroplasty. 2 views AP proximal and distal femur and 2 views AP knee and lower leg. Reference markers on the skin: medial lateral mid thigh, medial and lateral distal thigh, and medial and lateral mid lower leg. IMPRESSION: Skin reference markers are visualized. Advanced osteoarthritis with [id number] of the medial compartment of the right knee. Minimal medial shift of the femur on the tibia. Marginal spurs lateral compartment. Right total hip arthroplasty in customary position. No bony complications around the femoral stem. Loss of bone density in the distal right fibula and ankle mortise. Small bone density abutting the inferior tip of the medial malleolus. Electronically signed by: Jake Mathis MD 11/13/2018 6:47 PM CDT
== END ==
LOC: MRI 10:24
PROVIDERS: ATTEND Orthopaedic Surgery
DX: M17.11 Unilateral primary osteoarthritis, right knee (principal); M23.303 Other meniscus derangements, unspecified medial meniscus, right knee; M23.300 Other meniscus derangements, unspecified lateral meniscus, right knee; M89.8X6 Other specified disorders of bone, lower leg; Z96.641 Presence of right artificial hip joint

== ENCOUNTER → 2018-11-25 | Day surgery (SDC) | payer MEDICARE, OTHER ==
--- NOTE | 2018-11-14 08:04 | HP ---
CHIEF COMPLAINT: Right knee pain. HISTORY OF PRESENT ILLNESS: Ms. Mora is a 77-year-old female with a history of severe pain in the knee. She has had a left total knee arthroplasty. With regards to the right side, she has not had any trauma related to this, denies any radiation of pain and denies any neurologic symptoms. The pain can be severe at times and radiate all the way to a 10. It has been causing her to have to use an assistive device for ambulation. She has attempted conservative measures, however, has failed to gain relief and therefore has requested operative intervention. After discussing the risks, benefits and alternatives to that, she has given informed consent. PAST SURGICAL HISTORY: 1. Bilateral total hip arthroplasty. 2. Total knee arthroplasty. 3. Multiple lumbar surgeries. 4. Hysterectomy. 5. Thyroidectomy. MEDICATIONS: 1. Metoprolol. 2. Lisinopril. 3. Pravastatin. 4. Sertraline. 5. Sulindac. 6. Prilosec. 7. Meloxicam. 8. Zantac. 9. [place] 3. 10. Gabapentin. 11. vitamins. 12. Tramadol. 13. Tylenol #3 as needed. PAIN CONTRACT: None. ALLERGIES: NO KNOWN DRUG ALLERGIES. CODE STATUS: DNR. IMMUNIZATIONS: Up to date. SOCIAL HISTORY: The patient does not drink, smoke or use any illicit drugs. FAMILY HISTORY: None pertinent to today's complaint. REVIEW OF SYSTEMS: Negative except as indicated in the History of Present Illness. PHYSICAL EXAMINATION: VITAL SIGNS: Blood pressure 152/84. Pulse 87. Height 5'6". Weight 220 pounds. MENTAL STATUS: The patient is awake, alert, and is able to give a good history and participate in the physical. The patient is oriented to person, place and time. SKIN: Normal tone and turgor. HEENT: Normocephalic, atraumatic. Pupils equal, round and reactive. Mucosal membranes are moist. NECK: Normal range of motion. No thyromegaly, no lymphadenopathy. CHEST: Normal respiratory excursion. CARDIAC: Regular rate and rhythm. No murmurs, rubs or gallops. MUSCULOSKELETAL: She has bilateral upper extremities with full range of motion. There is no significant discomfort. She has intact sensation. Strength is 5/5. There is no crepitus. There are no deformities. The left lower extremity shows painless range of motion in the hip and knee. She has warm and well perfused. There is no deformity, no malalignment. She has well-healed incisions in the anterior aspect of the knee and the lateral aspect of the hip. Strength is 5/5. The right lower extremity shows painless range of motion in the hip. She has severe crepitus and pain with range of motion of the knee. She has pain throughout the knee to palpation. She lacks about 5 degrees of extension today and she has about 100 degrees of flexion. There is no varus/valgus or anterior/posterior laxity. Distally, she has intact sensation. Strength is 5/5 in the extremity. IMAGING: X-rays show severe arthritis. ASSESSMENT: 1. Arthritis. PLAN: The plan at this point is for total knee arthroplasty. We have discussed the risks, benefits, and alternatives to that and the patient has given informed consent. #[id number] [facility]
== END ==
LOC: AMB 05:34
PROVIDERS: ATTEND Orthopaedic Surgery
DX: M17.11 Unilateral primary osteoarthritis, right knee (principal); E89.0 Postprocedural hypothyroidism; Z96.643 Presence of artificial hip joint, bilateral; Z96.652 Presence of left artificial knee joint; Z90.710 Acquired absence of both cervix and uterus; Z79.899 Other long term (current) drug therapy; Z53.9 Procedure and treatment not carried out, unspecified reason

== ENCOUNTER 2018-12-02 05:25 | Inpatient (IN) | payer MEDICARE, OTHER ==
[2018-12-02] MEDS ORDERED: LACTATED RINGERS 1,000 ML ONE (05:52)
[2018-12-02] MEDS ORDERED: TRANEXAMIC ACID 1,000 MG/10 ML VIAL ONE ×2 (05:52→05:53)
[2018-12-02] MEDS ORDERED: SODIUM CHL 0.9% 100ML MINI-BAG 100 ML IVPB ONE (05:52)
[2018-12-02] MEDS ORDERED: SODIUM CHLORIDE 0.9% 250ML 250 ML ONE ×3 (05:53→19:22)
[2018-12-02] MEDS ORDERED: ceFAZolin SODIUM 1 GM VIAL ONE ×2 (05:53→06:26)
[2018-12-02] MEDS ORDERED: VANCOMYCIN HCL INJ 1,000 MG VIAL IVPB ONE ×3 (05:53→19:22)
[2018-12-02] MEDS ORDERED: SODIUM CHLORIDE 0.9% 100ML 100 ML IVPB ONE (05:54)
[2018-12-02] MEDS ORDERED: KETAMINE HCL 50 MG/ML SYG IV ONE (06:36)
[2018-12-02] MEDS ORDERED: ACETAMINOPHEN IV 1000MG 100 ML ONE (06:36)
[2018-12-02] MEDS ORDERED: MORPHINE SULFATE *EPIDURAL* 0.5 MG/ML VIAL ONE (06:36)
[2018-12-02] MEDS ORDERED: fentaNYL CITRATE INJ 50 MCG/ML AMP ONE (06:36)
[2018-12-02] MEDS ORDERED: MIDAZOLAM INJ 5 MG/5 ML VIAL ONE (06:37)
[2018-12-02] MEDS ORDERED: HYDROmorphone HCL INJ 2 MG/ML VIAL ONE (07:24)
[2018-12-02] MEDS: BUPIVACAINE 0.5% 30 ML VIAL INJ ONE ×2 (07:52→08:57)
[2018-12-02] MEDS: VANCOMYCIN HCL INJ 1,000 MG VIAL IVPB ONE ×2 (07:53→08:59)
[2018-12-02] MEDS: BUPIVACAINE LIPOSOME 13.3 MG/ML VIAL INJ ONE ×2 (07:53→08:57)
[2018-12-02] MEDS: ceFAZolin SODIUM 1 GM VIAL ONE ×2 (07:53→08:58)
[2018-12-02] MEDS ORDERED: BUPIVACAINE 0.5% 30 ML VIAL INJ ONE (08:14)
[2018-12-02] MEDS ORDERED: ELECTROLYTE-A 1,000 ML IVS ONE (08:56)
[2018-12-02] MEDS ORDERED: BENZOCAINE-MENTH LOZ (CEPACOL) 1 EA LOZ MT PRN (09:24)
[2018-12-02] MEDS ORDERED: traMADol HCL 50 MG TAB PO PRN (09:24)
[2018-12-02] MEDS ORDERED: SODIUM CHLORIDE 0.9% (FLUSH) 10 ML SYG IV PRN (09:24)
[2018-12-02] MEDS ORDERED: BISACODYL SUPPOSITORY 10 MG PR PRN (09:24)
[2018-12-02] MEDS ORDERED: MORPHINE SULFATE INJ 10 MG/ML VIAL IV PRN (09:24)
[2018-12-02] MEDS ORDERED: PROMETHAZINE HCL INJ 12.5 MG in SODIUM CHLORIDE 0.9% 50ML 50 ML IVPB PRN (09:24)
[2018-12-02] MEDS ORDERED: ZOLPIDEM TARTRATE 5 MG TAB PO PRN (09:24)
[2018-12-02] MEDS ORDERED: MAGNESIUM HYDROXIDE 30 ML UD PO PRN (09:24)
[2018-12-02] MEDS ORDERED: NALOXONE HCL INJ 0.4 MG/ML VIAL IV PRN (09:24)
[2018-12-02] MEDS ORDERED: ACETAMINOPHEN 500 MG TAB PO PRN (09:24)
[2018-12-02] MEDS ORDERED: ACETAMINOPHEN 325 MG TAB PO PRN (09:24)
[2018-12-02] MEDS ORDERED: DEX 5% W/NACL 0.45% 1000ML 1,000 ML IVS PRN (09:24)
[2018-12-02] MEDS ORDERED: TEMAZEPAM 15 MG CAP PO PRN (09:24)
[2018-12-02] MEDS ORDERED: MORPHINE SULFATE INJ 10 MG/ML VIAL IM PRN (09:24)
[2018-12-02] MEDS ORDERED: ONDANSETRON INJ 4 MG/2 ML VIAL IV PRN (09:24)
[2018-12-02] MEDS ORDERED: ALUMINUM & MAGNESIUM HYDROXIDE 30 ML UD PO PRN (09:24)
[2018-12-02] MEDS ORDERED: PROMETHAZINE HCL INJ 25 MG in SODIUM CHLORIDE 0.9% 50ML 50 ML IVPB PRN (09:24)
[2018-12-02] MEDS ORDERED: TRANEXAMIC ACID INJ 1,000 MG in SODIUM CHLORIDE 0.9% 100ML 100 ML IVPB ONE (09:24)
[2018-12-02] MEDS ORDERED: MORPHINE PCA 1 MG/ML 100 ML BAG IVPB SCH (09:30)
[2018-12-02] MEDS ORDERED: DEXAMETHASONE INJ 10 MG/ML VIAL IV ONE (10:00)
[2018-12-02] MEDS ORDERED: PROPOFOL 200 MG/20 ML VIAL IV ONE (10:00)
[2018-12-02] MEDS ORDERED: KETOROLAC TROMETHAMINE INJ 30 MG/ML VIAL IV ONE (10:00)
[2018-12-02] MEDS ORDERED: ePHEDrine SULF 50 MG/ML IV ONE (10:00)
[2018-12-02] MEDS ORDERED: raNITIdine HCL INJ 25 MG/ML VIAL IV ONE (10:00)
[2018-12-02] MEDS ORDERED: LIDOCAINE 1% 10 ML VIAL INJ ONE (10:00)
[2018-12-02] MEDS: IV SET AND CAP CHANGE INJ INJ SCH (13:11)
[2018-12-02] MEDS ORDERED: ceFAZolin SODIUM 2 GRAMS PREMI 50 ML IVPB ONE ×2 (16:00→19:22)
[2018-12-02] MEDS: ceFAZolin SODIUM 2 GRAMS PREMI 2 GM in PREMIX BAG 1 BAG IVPB SCH ×2 (16:07→23:59)
[2018-12-02] MEDS: CELECOXIB 100 MG CAP PO SCH (16:07)
[2018-12-02] MEDS: VANCOMYCIN HCL INJ 1,000 MG in SODIUM CHLORIDE 0.9% 250ML 250 ML IVPB SCH (18:56)
[2018-12-02] MEDS ORDERED: ENOXAPARIN SODIUM 30 MG/0.3 ML SYG SUBCU ONE (19:22)
[2018-12-02] MEDS: DOCUSATE CALCIUM 240 MG CAP PO SCH (20:23)
[2018-12-02] MEDS: ENOXAPARIN SODIUM 30 MG/0.3 ML SYG SUBCU SCH (23:04)
[2018-12-03] MEDS: VANCOMYCIN HCL INJ 1,000 MG in SODIUM CHLORIDE 0.9% 250ML 250 ML IVPB SCH (05:54)
[2018-12-03] MEDS: MAGNESIUM OXIDE 400 MG TAB PO SCH (08:16)
[2018-12-03] MEDS: CELECOXIB 100 MG CAP PO SCH ×2 (08:16→17:56)
[2018-12-03] MEDS: ceFAZolin SODIUM 2 GRAMS PREMI 2 GM in PREMIX BAG 1 BAG IVPB SCH (08:17)
[2018-12-03] MEDS ORDERED: SULINDAC 150 MG PO SCH (09:00)
[2018-12-03] MEDS: METOPROLOL TARTRATE 25 MG TAB PO SCH (09:29)
[2018-12-03] MEDS: FISH OIL 1,200 MG CAP PO SCH ×2 (09:30→20:46)
[2018-12-03] MEDS: CYCLOBENZAPRINE HCL 10 MG TAB PO PRN ×2 (09:30→20:48)
[2018-12-03] MEDS: SERTRALINE HCL 50 MG TAB PO SCH (09:31)
[2018-12-03] MEDS: GABAPENTIN 300 MG CAP PO SCH ×4 (09:31→20:47)
[2018-12-03] MEDS: LISINOPRIL 10 MG TAB PO SCH (09:32)
[2018-12-03] MEDS: PRENATAL VIT PO SCH (09:35)
[2018-12-03] MEDS: FERROUS FUMARA PO SCH (09:35)
[2018-12-03] MEDS: ENOXAPARIN SODIUM 30 MG/0.3 ML SYG SUBCU SCH ×2 (11:29→22:05)
[2018-12-03] MEDS ORDERED: OMEPRAZOLE CAP 20 MG CAP ONE (19:14)
[2018-12-03] MEDS: PRAVASTATIN SODIUM 20 MG TAB PO SCH (20:46)
[2018-12-03] MEDS: DOCUSATE CALCIUM 240 MG CAP PO SCH (20:46)
[2018-12-03] MEDS: traMADol HCL 50 MG TAB PO SCH (20:48)
[2018-12-04] MEDS: ACETAMINOPHEN W/COD #3 TAB 1 EA TAB PO PRN ×3 (05:46→18:09)
[2018-12-04] MEDS: OMEPRAZOLE CAP 20 MG CAP PO SCH (06:01)
[2018-12-04] MEDS: CELECOXIB 100 MG CAP PO SCH ×2 (08:30→16:50)
[2018-12-04] MEDS: MAGNESIUM OXIDE 400 MG TAB PO SCH (08:30)
[2018-12-04] MEDS: METOPROLOL TARTRATE 25 MG TAB PO SCH (08:33)
[2018-12-04] MEDS: FISH OIL 1,200 MG CAP PO SCH ×2 (08:33→20:34)
[2018-12-04] MEDS: PRENATAL VIT PO SCH (08:35)
[2018-12-04] MEDS: GABAPENTIN 300 MG CAP PO SCH ×3 (08:35→20:34)
[2018-12-04] MEDS: FERROUS FUMARA PO SCH (08:35)
[2018-12-04] MEDS: LISINOPRIL 10 MG TAB PO SCH (11:03)
[2018-12-04] MEDS: SODIUM CHLORIDE 0.9% (FLUSH) 10 ML SYG IV SCH ×2 (11:04→20:35)
[2018-12-04] MEDS: SERTRALINE HCL 50 MG TAB PO SCH (11:51)
[2018-12-04] MEDS: ENOXAPARIN SODIUM 30 MG/0.3 ML SYG SUBCU SCH ×2 (11:51→23:00)
[2018-12-04] MEDS: PRAVASTATIN SODIUM 20 MG TAB PO SCH (20:34)
[2018-12-04] MEDS: DOCUSATE CALCIUM 240 MG CAP PO SCH (20:34)
[2018-12-04] MEDS: traMADol HCL 50 MG TAB PO SCH (20:35)
[2018-12-05] MEDS: HYDROcodone 5MG/APAP 325MG 1 EA TAB PO PRN ×2 (05:07→17:45)
[2018-12-05] MEDS: OMEPRAZOLE CAP 20 MG CAP PO SCH (06:26)
[2018-12-05] MEDS: CELECOXIB 100 MG CAP PO SCH ×2 (07:26→17:04)
[2018-12-05] MEDS: FISH OIL 1,200 MG CAP PO SCH ×2 (08:28→21:11)
[2018-12-05] MEDS: LISINOPRIL 10 MG TAB PO SCH (08:29)
[2018-12-05] MEDS: GABAPENTIN 300 MG CAP PO SCH ×3 (08:29→21:11)
[2018-12-05] MEDS: MAGNESIUM OXIDE 400 MG TAB PO SCH (08:29)
[2018-12-05] MEDS: METOPROLOL TARTRATE 25 MG TAB PO SCH (08:30)
[2018-12-05] MEDS: SERTRALINE HCL 50 MG TAB PO SCH (08:30)
[2018-12-05] MEDS: PRENATAL VIT PO SCH (08:42)
[2018-12-05] MEDS: IV SET AND CAP CHANGE INJ INJ SCH (08:42)
[2018-12-05] MEDS: SODIUM CHLORIDE 0.9% (FLUSH) 10 ML SYG IV SCH ×2 (08:42→21:13)
[2018-12-05] MEDS: FERROUS FUMARA PO SCH (08:42)
[2018-12-05] MEDS: ENOXAPARIN SODIUM 30 MG/0.3 ML SYG SUBCU SCH ×2 (11:59→22:57)
[2018-12-05] MEDS ORDERED: BISACODYL SUPPOSITORY 10 MG PR ONE (21:00)
[2018-12-05] MEDS ORDERED: MAGNESIUM HYDROXIDE 30 ML UD PO ONE (21:00)
[2018-12-05] MEDS: PRAVASTATIN SODIUM 20 MG TAB PO SCH (21:11)
[2018-12-05] MEDS: DOCUSATE CALCIUM 240 MG CAP PO SCH (21:11)
[2018-12-05] MEDS: traMADol HCL 50 MG TAB PO SCH (21:12)
[2018-12-06] MEDS: HYDROcodone 5MG/APAP 325MG 1 EA TAB PO PRN (05:51)
[2018-12-06] MEDS: OMEPRAZOLE CAP 20 MG CAP PO SCH (06:38)
[2018-12-06] MEDS: METOPROLOL TARTRATE 25 MG TAB PO SCH (09:02)
[2018-12-06] MEDS: FISH OIL 1,200 MG CAP PO SCH (09:02)
[2018-12-06] MEDS: LISINOPRIL 10 MG TAB PO SCH (09:02)
[2018-12-06] MEDS: CELECOXIB 100 MG CAP PO SCH (09:05)
[2018-12-06] MEDS: SERTRALINE HCL 50 MG TAB PO SCH (09:05)
[2018-12-06] MEDS: PRENATAL VIT PO SCH (09:06)
[2018-12-06] MEDS: GABAPENTIN 300 MG CAP PO SCH ×2 (09:06→12:18)
[2018-12-06] MEDS: MAGNESIUM OXIDE 400 MG TAB PO SCH (09:06)
[2018-12-06] MEDS: FERROUS FUMARA PO SCH (09:06)
[2018-12-06 10:49] VITALS: BP 148/72; TEMP 98.8; O2SAT 94
[2018-12-06] MEDS: SODIUM CHLORIDE 0.9% (FLUSH) 10 ML SYG IV SCH (12:16)
[2018-12-06] MEDS: ENOXAPARIN SODIUM 30 MG/0.3 ML SYG SUBCU SCH (12:18)
== END 2018-12-06 12:35 | disposition home health service (06) | DRG 470 ==
LOC: AMB 05:25 → MS 12:15 → UNDOADMIN 12:20
PROVIDERS: ADMIT Orthopaedic Surgery; ATTEND Nurse Practitioner Acute Care
PROC: 0SRC0J9 Replacement of Right Knee Joint with Synthetic Substitute, Cemented, Open Approach (ICD-10-PCS; principal; 2018-12-02)
DX: M17.11 Unilateral primary osteoarthritis, right knee (principal); I10 Essential (primary) hypertension; E78.5 Hyperlipidemia, unspecified; F32.9 Major depressive disorder, single episode, unspecified; F41.9 Anxiety disorder, unspecified; K21.9 Gastro-esophageal reflux disease without esophagitis; G62.9 Polyneuropathy, unspecified; Z96.643 Presence of artificial hip joint, bilateral; Z96.652 Presence of left artificial knee joint; Z66 Do not resuscitate; Z79.1 Long term (current) use of non-steroidal anti-inflammatories (NSAID); Z79.891 Long term (current) use of opiate analgesic; Z79.899 Other long term (current) drug therapy

== ENCOUNTER → 2019-03-20 | Outpatient (CLI) | payer MEDICARE, OTHER ==
--- NOTE | 2019-03-24 15:28 | MAM ---
EXAM DESCRIPTION: 3D Screening BILATERAL : Digital Mammography. CLINICAL HISTORY: 78 years Female ANNUAL SCREENING . No complaints. Mother with breast cancer at unknown age. No personal history of breast cancer. Menarche age 11. Childbirth age 19. Hysterectomy age 30. Unknown history of HRT use . Lifetime risk of developing breast cancer (Tyrer-Cuzick model)(%): 4.8. COMPARISON: Baseline study at this facility. No prior reports available. TECHNIQUE: Bilateral CC and MLO projection full-field images, digital tomosynthesis mammographic technique. Bilateral digital 2-D full-field MLO images. CAD not available for tomosynthesis or 2-D images. Left side pain limited left MLO positioning. FINDINGS: The breast parenchymal density pattern is: Scattered areas of fibroglandular density. No skin thickening or nipple retraction. Mole marker mid right breast. Architectural distortion and possible mass density abutting the left breast posterior nipple line approximately 6 cm from the nipple. No definite calcifications. No focal, stellate mass or density, focal asymmetry , and no suspicious microcalcifications right breast. IMPRESSION: BI-RADS CATEGORY: 0 - INCOMPLETE- Need additional imaging evaluation. FOLLOW-UP: Recall for additional imaging: Full-field left breast LM projection 2-D images and tomosynthesis. Directed left breast ultrasound region of interest.. Written communication concerning the IMPRESSION and Follow-up, will be mailed to the patient and referring health care provider. Electronically signed by: Jake Mathis MD 03/24/2019 3:26 PM [facility]
== END ==
LOC: MAMMO 10:30
PROVIDERS: ATTEND Family Medicine
DX: Z12.31 Encounter for screening mammogram for malignant neoplasm of breast (principal)

== ENCOUNTER → 2019-05-11 | Outpatient (CLI) | payer MEDICARE, OTHER ==
--- NOTE | 2019-05-11 16:32 | MAM ---
EXAM DESCRIPTION: 3D Diagnostic, Bilateral (accession [id number]), Breast,Left (accession [id number]): Ultrasound CLINICAL HISTORY: 78 yearsFemaleABNORMAL MAMMOGRAM . Architectural distortion and possible mass density abutting the left breast posterior nipple line Lifetime risk of developing breast cancer (Tyrer-Cuzick model)(%): 4.8. COMPARISON: Bilateral screening digital breast tomosynthesis March 2019. TECHNIQUE: Bilateral LM projection full-field images, digital tomosynthesis technique. Bilateral 2-D digital full-field images: LM and CC projections. CAD available for 2-D images.. Transcutaneous scanning of the left breast utilizing delgadillo-scale and Doppler modes. Scanning performed by the last ironer and Dr. Mathis. FINDINGS: The breast parenchymal density pattern is: Scattered areas of fibroglandular density. No skin thickening or nipple retraction bilateral solitary microcalcifications and coarse calcification in the right breast. Focal asymmetry again noted in the mid third of the left breast in the posterior nipple line, approximately 6 cm and 8 cm from the nipple no abnormal microcalcifications.. Ultrasound: Directed ultrasound left breast. Scanning of the left breast 12:00 positions 6 cm from the nipple. Mostly fatty echotexture with minimal fibroglandular tissues. Similar findings at the 8:00 position. No dominant solid mass. No distinct cyst. No large calcifications. No overlying skin changes. IMPRESSION: Benign exam. BIRAD CATEGORY: 2 BENIGN FINDINGS. RECOMMENDATIONS: FOLLOW UP: Routine digital bilateral mammographic screening, one year interval from March 2019. Written communication explaining the IMPRESSION and follow-up, will be mailed to the patient and referring health care provider. The FINDINGS and the FOLLOW-UP plan were reviewed in person with the patient after the examination. According to the [employer], yearly mammograms are recommended starting at age 40 and continuing as long as a woman is in good health. Any breast change noted on a breast self-exam should be reported promptly to the patient's healthcare provider. Breast MRI is recommended for women with an approximately 20-25% or greater lifetime risk of breast cancer, including women with a strong family history of breast or ovarian cancer and women who have been treated for Hodgkin's disease. A negative mammographic report should not delay tissue diagnosis in patients with significant clinical history or physical findings. Extremely dense breast tissue limits the sensitivity of digital mammography. Electronically signed by: Jake Mathis MD 05/11/2019 4:31 PM [facility]
== END ==
LOC: MAMMO 12:58
PROVIDERS: ATTEND Family Medicine
DX: R92.8 Other abnormal and inconclusive findings on diagnostic imaging of breast (principal)
CPT/HCPCS: 76641; 77066; G0279

== ENCOUNTER → 2020-03-21 | Outpatient (CLI) | payer MEDICARE, OTHER | LOC: GMAE 15:14 | PROVIDERS: ATTEND Family Medicine | DX: D50.9 Iron deficiency anemia, unspecified (principal) ==